=== PATIENT | male | born 1940 | race Caucasian/White ===

== ENCOUNTER 2018-10-13 10:57 | Observation (INO) ==
[2018-10-13] MEDS ORDERED: LIDOCAINE 1%/EPI INJ 20 ML VIAL ONE (11:40)
[2018-10-13 11:57] LABS: Basophils % 0.5 % (0.0-0.8); Eosinophils # 0.2 10*3/uL (0.0-0.87); Eosinophils % 1.9 % (0.00-10.9); Hematocrit 37.1 VOL% (42.0-52.0); Hemoglobin 12.4 GM/DL (14.0-18.0); Immature Granulocytes % 0.4 %; Immature Granulocytes Absolute 0.03 #; Lymphocytes # 1.2 10*3/uL (1.4-4.0); Lymphocytes % 14.1 % (21.2-54.2); Mean Corpuscular HGB Conc 33.4 GM/DL (32-36); Mean Corpuscular Volume 91.8 FL (87-102); Mean Platelet Volume 9.8 FL (9.6-12.0); Monocytes % 6.7 % (1.7-12.7); Neutrophils % 76.4 % (38.7-73.9); Platelet Count 194 T/CUMM (130-400); Red Blood Count 4.04 MC/CUMM (3.8-5.5); Red Cell Distribution Width 14.1 % (9.3-17.3); White Blood Count 8.3 T/CUMM (4-12)
[2018-10-13 12:07] LABS: PT Patient Result 10.6 SECS; Partial Thromboplastin Time 25.7 SECS (0-40)
[2018-10-13 12:19] LABS: Albumin 3.7 G/DL (3.4-5.0); Calcium 9.1 MG/DL (8.5-10.1); Osmolality,Calculated 276.4 MOS/KG (273-304); Total Protein 6.7 G/DL (6.4-8.3)
[2018-10-13] MEDS ORDERED: ONDANSETRON 4 MG/2 ML VIAL IV PRN (13:54)
[2018-10-13] MEDS: SODIUM CHLORIDE 0.9% 1,000 ML IV SCH (18:33)
[2018-10-13] MEDS: LORazepam 0.5 MG TABLET PO SCH (22:44)
[2018-10-14] MEDS: SODIUM CHLORIDE 0.9% 1,000 ML IV SCH ×4 (02:06→17:39)
[2018-10-14 04:08] LABS: Basophils # 0.1 10*3/uL (0.0-0.2); Basophils % 0.5 % (0.0-0.8); Eosinophils % 0.4 % (0.00-10.9); Hematocrit 33.2 VOL% (42.0-52.0); Hemoglobin 11.2 GM/DL (14.0-18.0); Immature Granulocytes % 0.4 %; Immature Granulocytes Absolute 0.04 #; Lymphocytes # 1.4 10*3/uL (1.4-4.0); Lymphocytes % 13.4 % (21.2-54.2); Mean Corpuscular HGB Conc 33.7 GM/DL (32-36); Mean Platelet Volume 9.8 FL (9.6-12.0); Monocytes % 8.5 % (1.7-12.7); Neutrophils % 76.8 % (38.7-73.9); Platelet Count 171 T/CUMM (130-400); Red Blood Count 3.65 MC/CUMM (3.8-5.5); White Blood Count 10.8 T/CUMM (4-12)
[2018-10-14 04:48] LABS: Bilirubin,Total 1.2 MG/DL (0.2-1.0); Osmolality,Calculated 281.1 MOS/KG (273-304); Risk Ratio 1.68; Thyroid Stimulating Hormone 0.014 uIU/ml (0.358-3.74); Total Protein 5.4 G/DL (6.4-8.3)
[2018-10-14] MEDS: PANTOPRAZOLE 40 MG TABLET PO SCH (09:07)
[2018-10-14] MEDS: LORazepam 0.5 MG TABLET PO SCH ×2 (21:17→23:30)
[2018-10-15] MEDS: SODIUM CHLORIDE 0.9% 1,000 ML IV SCH (03:00)
[2018-10-15 04:38] LABS: Basophils % 0.2 % (0.0-0.8); Eosinophils # 0.1 10*3/uL (0.0-0.87); Eosinophils % 1.5 % (0.00-10.9); Hematocrit 31.2 VOL% (42.0-52.0); Hemoglobin 10.1 GM/DL (14.0-18.0); Immature Granulocytes % 0.5 %; Immature Granulocytes Absolute 0.04 #; Lymphocytes # 1.7 10*3/uL (1.4-4.0); Lymphocytes % 18.8 % (21.2-54.2); Mean Corpuscular HGB Conc 32.4 GM/DL (32-36); Mean Corpuscular Volume 93.1 FL (87-102); Mean Platelet Volume 9.7 FL (9.6-12.0); Platelet Count 152 T/CUMM (130-400); Red Blood Count 3.35 MC/CUMM (3.8-5.5); Red Cell Distribution Width 14.2 % (9.3-17.3); White Blood Count 8.8 T/CUMM (4-12)
[2018-10-15 05:09] LABS: Albumin 2.6 G/DL (3.4-5.0); Bilirubin,Total 1.1 MG/DL (0.2-1.0); Calcium 8.1 MG/DL (8.5-10.1); Total Protein 5.3 G/DL (6.4-8.3)
[2018-10-15 07:53] VITALS: BP 135/95
[2018-10-15] MEDS: PANTOPRAZOLE 40 MG TABLET PO SCH (09:28)
== END 2018-10-15 10:45 | disposition home or self-care (01) ==
LOC: EDUNIT# → EDBD → N.ED 10:57 → N.EDINP 10:57 → SUATTDRO 12:47 → N.TELEN 16:51
PROVIDERS: ADMIT Internal Medicine Nephrology; ATTEND Hospitalist